=== PATIENT | female | born 1995 | race Two or more races ===

== ENCOUNTER 2018-03-28 16:56 | Inpatient (IN) | payer MEDICAID, OTHER ==
[~2018-03-28] VITALS: Ht 170.2 cm; Wt 123.8 kg
[2018-03-28 18:39] LABS: BASOPHILS % (AUTO) 1.2 % (0.0-2.0); EOSINOPHILS % (AUTO) 1.2 % (1.0-6.0); HEMATOCRIT 33.9 % (36-46); HEMOGLOBIN 10.9 g/dL (12.0-16.0); LYMPHOCYTES # (AUTO) 1.5 K/uL (1.0-4.8); LYMPHOCYTES % (AUTO) 12.4 % (22.0-44.0); MEAN CORPUSCULAR HEMOGLOBIN 24.2 pg (26.0-34.0); MEAN CORPUSCULAR HGB CONC 32.2 G/dL (31.0-37.0); MEAN CORPUSCULAR VOLUME 75 fL (80-100); MONOCYTES # (AUTO) 0.9 K/uL (0.1-1.0); NEUTROPHILS # (AUTO) 9.7 K/uL (1.8-7.7); NEUTROPHILS % (AUTO) 78.2 % (40.0-70.0); PLATELET COUNT (AUTO) 413 K/uL (150-450); RED BLOOD CELL COUNT(AUTO) 4.52 MIL/uL (4.00-5.20); RED CELL DISTRIBUTION WIDTH 16.3 % (11.5-14.5)
[2018-03-28] MEDS ORDERED: LORazepam 2 MG TABLET PO PRN (18:45)
[2018-03-28] MEDS ORDERED: IBUPROFEN 400 MG TABLET PO PRN (18:45)
[2018-03-28] MEDS ORDERED: HALOPERIDOL 5 MG TABLET PO PRN (18:45)
[2018-03-28] MEDS ORDERED: ACETAMINOPHEN 325 MG TABLET PO PRN (18:45)
[2018-03-28 18:47] LABS: ANION GAP 11 mmol/L (8-16); CALCIUM, TOTAL 8.5 mg/dL (8.8-10.5); CARBON DIOXIDE 25 mmol/L (22-29); CHLORIDE 104 mmol/L (98-107); GLOMERULAR FILTR. RATE CALC > 60 mL/min (>60); GLUCOSE,RANDOM 109 mg/dL (70-110); SODIUM SERUM 140 mmol/L (136-145); UREA NITROGEN, BLOOD 15 mg/dL (7-18)
[2018-03-28 18:53] LABS: ALANINE AMINOTRANSFERASE 14 U/L (12-78); ALBUMIN 3.2 g/dL (3.4-5.0); ALKALINE PHOSPHATASE 94 U/L (46-116); ASPARTATE AMINOTRANSFERASE 12 U/L (15-37); BILIRUBIN,TOTAL 0.2 mg/dL (0.1-1.0)
[2018-03-28 20:02] LABS: AMPHET/METH SCREEN,URINE POSITIVE (NEGATIVE); BARBITURATE SCREEN, URINE NEGATIVE (NEGATIVE); BENZODIAZEPINES SCREEN,URINE NEGATIVE (NEGATIVE); CANNABINOID SCREEN,URINE POSITIVE (NEGATIVE); COCAINE SCREEN,URINE NEGATIVE (NEGATIVE); METHADONE SCREEN, URINE NEGATIVE (NEGATIVE); OPIATE SCREEN,URINE NEGATIVE (NEGATIVE); PHENCYCLIDINE SCREEN,URINE NEGATIVE (NEGATIVE)
[2018-03-28 20:25] VITALS: BP 116/77
[2018-03-28 20:48] VITALS: BP 116/77
[2018-03-28] MEDS ORDERED: PERMETHRIN 1% 60 ML LOTION TP ONE (21:00)
[2018-03-28] MEDS: ZOLPIDEM TARTRATE 10 MG TABLET PO PRN (21:12)
[2018-03-29 06:03] VITALS: BP 110/68
[2018-03-29 08:39] LABS: BASOPHILS % (AUTO) 0.8 % (0.0-2.0); EOSINOPHILS % (AUTO) 2.4 % (1.0-6.0); HEMATOCRIT 34.9 % (36-46); HEMOGLOBIN 11.1 g/dL (12.0-16.0); LYMPHOCYTES % (AUTO) 24.2 % (22.0-44.0); MEAN CORPUSCULAR HEMOGLOBIN 24.3 pg (26.0-34.0); MEAN CORPUSCULAR HGB CONC 31.8 G/dL (31.0-37.0); MEAN CORPUSCULAR VOLUME 76 fL (80-100); MONOCYTES # (AUTO) 0.7 K/uL (0.1-1.0); MONOCYTES % (AUTO) 8.6 % (2.0-9.0); NEUTROPHILS # (AUTO) 5.3 K/uL (1.8-7.7); PLATELET COUNT (AUTO) 388 K/uL (150-450); RED BLOOD CELL COUNT(AUTO) 4.57 MIL/uL (4.00-5.20); RED CELL DISTRIBUTION WIDTH 16.7 % (11.5-14.5)
[2018-03-29 08:41] VITALS: BP 101/60
[2018-03-29 08:49] LABS: HEMOGLOBIN A1C 5.2 % (4.5-6.2)
[2018-03-29 09:16] LABS: ALANINE AMINOTRANSFERASE 18 U/L (12-78); ALKALINE PHOSPHATASE 85 U/L (46-116); ANION GAP 8 mmol/L (8-16); ASPARTATE AMINOTRANSFERASE 10 U/L (15-37); BILIRUBIN,TOTAL 0.2 mg/dL (0.1-1.0); CALCIUM, TOTAL 8.6 mg/dL (8.8-10.5); CARBON DIOXIDE 26 mmol/L (22-29); CHLORIDE 105 mmol/L (98-107); CREATININE 0.61 mg/dL (0.60-1.30); GLOMERULAR FILTR. RATE CALC > 60 mL/min (>60); GLUCOSE,RANDOM 88 mg/dL (70-110); POTASSIUM 3.8 mmol/L (3.5-5.1); SODIUM SERUM 139 mmol/L (136-145); TOTAL PROTEIN, SERUM 6.7 g/dL (6.4-8.2); UREA NITROGEN, BLOOD 16 mg/dL (7-18)
[2018-03-29 09:40] LABS: FREE T4 (FREE THYROXINE) 0.96 ng/dL (0.76-1.46); THYROID STIMULATING HORMONE 1.76 uIU/mL (0.36-3.74)
[2018-03-29 09:54] LABS: CHOL/HDL RATIO 2.9 (3.9-5.7)
[2018-03-29] MEDS ORDERED: ONDANSETRON HCL 4 MG TABLET PO PRN (13:30)
[2018-03-29] MEDS ORDERED: PETROLATUM,WHITE 71 GM JELLY TP PRN (13:30)
[2018-03-29] MEDS ORDERED: MAGNESIUM HYDROXIDE SUSPENSION 30 ML UDCUP PO PRN (13:30)
[2018-03-29] MEDS ORDERED: GuaiFENesin/D-METHORPHAN [SUGAR-FREE] 200-20MG/10 ML SYRUP UDCUP PO PRN (13:30)
[2018-03-29] MEDS ORDERED: CloNIDine HCL 0.1 MG TABLET PO PRN (13:30)
[2018-03-29] MEDS ORDERED: LOPERAMIDE HCL 2 MG CAPSULE PO PRN (13:30)
[2018-03-29] MEDS ORDERED: ACETAMINOPHEN 325 MG TABLET PO PRN (13:30)
[2018-03-29] MEDS ORDERED: MAG HYDROX/AL HYDROX/SIMETH ES 30 ML SUSPENSION UDCUP PO PRN (13:30)
[2018-03-29] MEDS ORDERED: NICOTINE 14 MG/24 HOUR PATCH TD PRN (13:30)
[2018-03-29] MEDS ORDERED: ALBUTEROL SULFATE HFA 90 MCG/PUFF 8 GM INHALER IH PRN (13:30)
[2018-03-29] MEDS ORDERED: IBUPROFEN 400 MG TABLET PO PRN (13:30)
[2018-03-29] MEDS ORDERED: DOCUSATE SODIUM 100 MG CAPSULE PO PRN (13:30)
[2018-03-29] MEDS ORDERED: PERMETHRIN 1% 60 ML LOTION TP ONE (14:30)
[2018-03-29] MEDS: FERROUS SULFATE 325 MG EC TABLET PO SCH (16:23)
[2018-03-29 16:33] VITALS: BP 111/60
[2018-03-30] MEDS: FERROUS SULFATE 325 MG EC TABLET PO SCH ×2 (06:12→16:44)
[2018-03-30] MEDS ORDERED: ZIPRASIDONE HCL 40 MG CAPSULE PO SCH (07:00)
[2018-03-30 08:31] VITALS: BP 103/61
[2018-03-30 16:31] VITALS: BP 122/81
[2018-03-30] MEDS: ZIPRASIDONE HCL 20 MG CAPSULE PO SCH (16:44)
[2018-03-30] MEDS: ZOLPIDEM TARTRATE 10 MG TABLET PO PRN (20:07)
[2018-03-31 06:09] VITALS: BP 124/87
[2018-03-31] MEDS: FERROUS SULFATE 325 MG EC TABLET PO SCH ×2 (07:11→16:29)
[2018-03-31] MEDS: ZIPRASIDONE HCL 20 MG CAPSULE PO SCH ×2 (07:11→16:29)
[2018-03-31 08:19] VITALS: BP 100/64
[2018-03-31 16:35] VITALS: BP 112/65
[2018-03-31] MEDS: ZOLPIDEM TARTRATE 10 MG TABLET PO PRN (20:09)
[2018-04-01 02:12] VITALS: BP 124/78
[2018-04-01] MEDS: FERROUS SULFATE 325 MG EC TABLET PO SCH (06:48)
[2018-04-01] MEDS: ZIPRASIDONE HCL 20 MG CAPSULE PO SCH (06:48)
[2018-04-01 08:12] VITALS: BP 118/68
[2018-04-01] MEDS ORDERED: ZIPR60CA2 PO (09:56)
[2018-04-01] MEDS ORDERED: FERR-89 PO (09:56)
[2018-04-01] MEDS ORDERED: ZIPR20CA2 PO (10:08)
== END 2018-04-01 13:15 | disposition home or self-care (01) | DRG 750 ==
LOC: EMS 16:58 → B2S 19:00
PROVIDERS: ADMIT Psychiatry & Neurology Psychiatry; ATTEND Psychiatry & Neurology Psychiatry
DX: F20.0 Paranoid schizophrenia (principal); D50.9 Iron deficiency anemia, unspecified; Z91.19 Patient's noncompliance with other medical treatment and regimen; D72.829 Elevated white blood cell count, unspecified; F10.10 Alcohol abuse, uncomplicated; F12.10 Cannabis abuse, uncomplicated; F15.10 Other stimulant abuse, uncomplicated; F17.210 Nicotine dependence, cigarettes, uncomplicated; Z71.6 Tobacco abuse counseling; Z71.41 Alcohol abuse counseling and surveillance of alcoholic; Z71.51 Drug abuse counseling and surveillance of drug abuser; Y90.9 Presence of alcohol in blood, level not specified
CPT/HCPCS: 83036; 84439; 84443; 99285; G0480

== ENCOUNTER 2021-10-04 13:16 | Emergency (ER) | payer MEDICAID, OTHER ==
[~2021-10-04] VITALS: Ht 170.2 cm; Wt 126.4 kg
[~2021-10-04 13:16] MED LIST: FERR325T27 PO; ZIPR20CA2 PO; ZIPR60CA2 PO
[2021-10-04] MEDS ORDERED: LIDOCAINE 1% 10 ML VIAL ID ONE (15:45)
[2021-10-04 16:10] VITALS: BP 119/81
[2021-10-04] MEDS ORDERED: ACET-66 PO (17:43)
== END 2021-10-04 18:17 | disposition home or self-care (01) ==
LOC: EMS 13:21
DX: S00.551A Superficial foreign body of lip, initial encounter (principal); F17.210 Nicotine dependence, cigarettes, uncomplicated; F12.90 Cannabis use, unspecified, uncomplicated; F41.9 Anxiety disorder, unspecified; W45.8XXA Other foreign body or object entering through skin, initial encounter; Y93.89 Activity, other specified; Y92.89 Other specified places as the place of occurrence of the external cause; Y99.8 Other external cause status
CPT/HCPCS: 10120; 99285; J3490

== ENCOUNTER 2021-10-06 14:11 | Emergency (ER) | payer OTHER ==
[~2021-10-06] VITALS: Ht 170.2 cm; Wt 122.7 kg
[~2021-10-06 14:11] MED LIST changes: +ACET-66 PO; -ZIPR20CA2 PO
[2021-10-06 15:07] VITALS: BP 120/59
== END 2021-10-06 15:33 | disposition home or self-care (01) ==
LOC: EMS 14:14
DX: Z48.00 Encounter for change or removal of nonsurgical wound dressing (principal); F12.90 Cannabis use, unspecified, uncomplicated; F15.90 Other stimulant use, unspecified, uncomplicated; F17.210 Nicotine dependence, cigarettes, uncomplicated; F41.9 Anxiety disorder, unspecified; Z79.899 Other long term (current) drug therapy
CPT/HCPCS: 99281; Z7502

== ENCOUNTER 2021-10-08 17:49 | Emergency (ER) | payer OTHER ==
[~2021-10-08] VITALS: Ht 170.2 cm; Wt 122.7 kg
[2021-10-08 18:20] VITALS: BP 116/64
== END 2021-10-08 18:49 | disposition home or self-care (01) ==
LOC: EMS 17:49
DX: S01.511D Laceration without foreign body of lip, subsequent encounter (principal); F41.9 Anxiety disorder, unspecified; F17.210 Nicotine dependence, cigarettes, uncomplicated; F15.90 Other stimulant use, unspecified, uncomplicated; F12.90 Cannabis use, unspecified, uncomplicated; Z98.890 Other specified postprocedural states; X58.XXXD Exposure to other specified factors, subsequent encounter
CPT/HCPCS: 99281; Z7502

== ENCOUNTER 2022-01-01 22:23 | Emergency (ER) | payer OTHER ==
[~2022-01-01] VITALS: Ht 170.2 cm; Wt 113.6 kg
[2022-01-01 22:26] VITALS: BP 128/76
== END 2022-01-01 23:30 | disposition home or self-care (01) ==
LOC: EMS 22:23
DX: M79.5 Residual foreign body in soft tissue (principal); F41.9 Anxiety disorder, unspecified; F17.210 Nicotine dependence, cigarettes, uncomplicated; F15.90 Other stimulant use, unspecified, uncomplicated; F12.90 Cannabis use, unspecified, uncomplicated; Z98.890 Other specified postprocedural states
CPT/HCPCS: 99284; Z7502

== ENCOUNTER 2023-01-20 21:06 | Inpatient (IN) | payer MEDICAID, OTHER ==
[~2023-01-20] VITALS: Ht 170.2 cm; Wt 132.9 kg
[~2023-01-20 21:06] MED LIST changes: -ZIPR60CA2 PO; +ZIPR60CA29 PO
[2023-01-20] MEDS ORDERED: HALOPERIDOL 5 MG TABLET PO ONE (23:15)
[2023-01-21] MEDS ORDERED: DiphenhydrAMINE HCL 50 MG/ML VIAL IM ONE (06:30)
[2023-01-21] MEDS ORDERED: HALOPERIDOL LACTATE 5 MG/ML VIAL IM ONE (06:30)
[2023-01-21] MEDS ORDERED: LORazepam 2 MG/ML VIAL IM ONE (06:30)
[2023-01-21 06:59] LABS: COVID AG,FIA SOURCE NASOPHARYNGEAL
[2023-01-21] MEDS: LORazepam 1 MG TABLET PO PRN (13:14)
[2023-01-21] MEDS: HALOPERIDOL 5 MG TABLET PO PRN (13:14)
[2023-01-22] MEDS ORDERED: ACETAMINOPHEN 325 MG TABLET PO ONE (06:00)
[2023-01-22] MEDS: HALOPERIDOL 5 MG TABLET PO PRN (13:52)
[2023-01-22] MEDS: LORazepam 1 MG TABLET PO PRN (13:52)
[2023-01-23 00:44] VITALS: BP 142/98; PULSE 89; RESP 18; TEMP 97.2; O2SAT 98
[2023-01-23 08:20] VITALS: BP 131/79; PULSE 95; RESP 16; TEMP 98; O2SAT 96
[2023-01-23] MEDS: LORazepam 1 MG TABLET PO PRN (09:52)
[2023-01-23] MEDS ORDERED: GuaiFENesin/D-METHORPHAN [SUGAR-FREE] 200-20MG/10 ML SYRUP UDCUP PO PRN (13:45)
[2023-01-23] MEDS ORDERED: NICOTINE 14 MG/24 HOUR PATCH TD PRN (13:45)
[2023-01-23] MEDS ORDERED: DOCUSATE SODIUM 100 MG CAPSULE PO PRN (13:45)
[2023-01-23] MEDS ORDERED: LOPERAMIDE HCL 2 MG CAPSULE PO PRN (13:45)
[2023-01-23] MEDS ORDERED: MAGNESIUM HYDROXIDE SUSPENSION 30 ML UDCUP PO PRN (13:45)
[2023-01-23] MEDS ORDERED: ALBUTEROL SULFATE HFA 90 MCG/PUFF 8 GM INHALER IH PRN (13:45)
[2023-01-23] MEDS ORDERED: CloNIDine HCL 0.1 MG TABLET PO PRN (13:45)
[2023-01-23] MEDS ORDERED: PETROLATUM,WHITE 28 GM JELLY TP PRN (13:45)
[2023-01-23] MEDS ORDERED: IBUPROFEN 400 MG TABLET PO PRN (13:45)
[2023-01-23] MEDS ORDERED: MAG HYDROX/AL HYDROX/SIMETH ES 30 ML SUSPENSION UDCUP PO PRN (13:45)
[2023-01-23] MEDS ORDERED: ACETAMINOPHEN 325 MG TABLET PO PRN (13:45)
[2023-01-23] MEDS ORDERED: ONDANSETRON HCL 4 MG TABLET PO PRN (13:45)
[2023-01-23] MEDS ORDERED: PRAZ1 PO (13:57)
[2023-01-23] MEDS ORDERED: LURA40TA4 PO (13:57)
[2023-01-23] MEDS ORDERED: FLUO20CA36 PO (13:57)
[2023-01-23] MEDS: FERROUS SULFATE 325 MG EC TABLET PO SCH (16:04)
[2023-01-23] MEDS: FLUoxetine HCL 20 MG CAPSULE PO SCH (16:04)
[2023-01-23] MEDS: PRAZOSIN HCL 1 MG CAPSULE PO SCH (20:02)
[2023-01-23] MEDS: ZOLPIDEM TARTRATE 10 MG TABLET PO PRN (20:02)
[2023-01-23 20:16] VITALS: BP 127/73; PULSE 83; RESP 20; TEMP 97.3; O2SAT 100
[2023-01-24] MEDS: LURASIDONE HCL 40 MG TABLET PO SCH (06:50)
[2023-01-24] MEDS: FERROUS SULFATE 325 MG EC TABLET PO SCH ×2 (06:50→16:30)
[2023-01-24] MEDS: FLUoxetine HCL 20 MG CAPSULE PO SCH (08:05)
[2023-01-24 08:48] VITALS: BP 137/71; PULSE 95; RESP 18; TEMP 98; O2SAT 98
[2023-01-24] MEDS: LORazepam 1 MG TABLET PO PRN (10:58)
[2023-01-24] MEDS: HALOPERIDOL 5 MG TABLET PO PRN (10:59)
[2023-01-24 20:06] VITALS: BP 145/77; PULSE 78; RESP 20; TEMP 97.7; O2SAT 98
[2023-01-24] MEDS: PRAZOSIN HCL 1 MG CAPSULE PO SCH (20:54)
[2023-01-24] MEDS: ZOLPIDEM TARTRATE 10 MG TABLET PO PRN (20:55)
[2023-01-25] MEDS: LURASIDONE HCL 40 MG TABLET PO SCH (06:56)
[2023-01-25] MEDS: FERROUS SULFATE 325 MG EC TABLET PO SCH ×2 (06:56→16:16)
[2023-01-25 07:15] VITALS: BP 107/64; PULSE 62; RESP 18; TEMP 98.2
[2023-01-25 08:00] VITALS: BP 139/76; PULSE 95; RESP 18; TEMP 97.4; O2SAT 96
[2023-01-25 08:13] VITALS: BP 119/76; PULSE 96; RESP 18; TEMP 98.3; O2SAT 97
[2023-01-25] MEDS: FLUoxetine HCL 20 MG CAPSULE PO SCH (08:52)
[2023-01-25 09:30] VITALS: BP 127/62; PULSE 79; RESP 18; TEMP 97.6; O2SAT 97
[2023-01-25 16:23] VITALS: BP 131/76; PULSE 89; RESP 18
[2023-01-25 20:11] VITALS: BP 100/74; PULSE 98; RESP 18; O2SAT 97
[2023-01-25] MEDS: ZOLPIDEM TARTRATE 10 MG TABLET PO PRN (20:45)
[2023-01-25] MEDS: PRAZOSIN HCL 1 MG CAPSULE PO SCH (20:45)
[2023-01-26] MEDS: FERROUS SULFATE 325 MG EC TABLET PO SCH ×2 (06:45→17:00)
[2023-01-26] MEDS: LURASIDONE HCL 40 MG TABLET PO SCH (06:45)
[2023-01-26] MEDS: FLUoxetine HCL 20 MG CAPSULE PO SCH (08:21)
[2023-01-26 09:10] VITALS: BP 117/75; PULSE 111; RESP 18; TEMP 97.8; O2SAT 99
[2023-01-26] MEDS: LORazepam 1 MG TABLET PO PRN (18:28)
[2023-01-26] MEDS ORDERED: LORazepam 2 MG TABLET PO PRN (19:00)
[2023-01-26] MEDS: ZOLPIDEM TARTRATE 10 MG TABLET PO PRN (20:29)
[2023-01-26] MEDS: PRAZOSIN HCL 1 MG CAPSULE PO SCH (20:29)
[2023-01-26 20:50] VITALS: BP 112/62; PULSE 81; RESP 18; TEMP 97.8; O2SAT 96
[2023-01-27] MEDS: FERROUS SULFATE 325 MG EC TABLET PO SCH ×2 (06:50→17:14)
[2023-01-27] MEDS: LURASIDONE HCL 40 MG TABLET PO SCH (06:50)
[2023-01-27 08:23] VITALS: BP 118/72; PULSE 97; RESP 18; TEMP 97.5; O2SAT 99
[2023-01-27] MEDS: FLUoxetine HCL 20 MG CAPSULE PO SCH (08:26)
[2023-01-27 08:31] LABS: APPEARANCE,URINE HAZY (CLEAR); BILIRUBIN,URINE NEGATIVE (NEGATIVE); GLUCOSE, URINE (UA) NEGATIVE (NEGATIVE); KETONES,URINE NEGATIVE (NEGATIVE); LEUKOCYTE ESTERASE ,URINE LARGE (NEGATIVE); NITRATE,URINE NEGATIVE (NEGATIVE); OCCULT BLOOD,URINE NEGATIVE (NEGATIVE); PROTEIN,URINE 30-70 mg/dL (NEGATIVE); SPECIFIC GRAVITIY, URINE 1.023 (1.003-1.030); UROBILINOGEN,URINE <=1.0 mg/dL (<=1.0)
[2023-01-27 08:32] LABS: AMPHET/METH SCREEN,URINE NEGATIVE (NEGATIVE); BARBITURATE SCREEN, URINE NEGATIVE (NEGATIVE); BENZODIAZEPINES SCREEN,URINE NEGATIVE (NEGATIVE); CANNABINOID SCREEN,URINE POSITIVE (NEGATIVE); COCAINE SCREEN,URINE NEGATIVE (NEGATIVE); METHADONE SCREEN, URINE NEGATIVE (NEGATIVE); OPIATE SCREEN,URINE NEGATIVE (NEGATIVE); PHENCYCLIDINE SCREEN,URINE NEGATIVE (NEGATIVE)
[2023-01-27 08:58] LABS: BACTERIA,URINE Few /HPF (None Seen); RBC,URINE 0-2 /HPF (0-2); SQUAMOUS EPITHELIAL CELL,UR Moderate /LPF (None Seen)
[2023-01-27] MEDS: LORazepam 1 MG TABLET PO PRN ×2 (12:23→19:37)
[2023-01-27] MEDS ORDERED: FLUO20CA36 PO (16:59)
[2023-01-27] MEDS: PRAZOSIN HCL 1 MG CAPSULE PO SCH (20:19)
[2023-01-27 20:44] VITALS: BP 132/72; PULSE 62; RESP 16; TEMP 97.8; O2SAT 95
[2023-01-27] MEDS: ZOLPIDEM TARTRATE 10 MG TABLET PO PRN (21:22)
[2023-01-28] MEDS: FERROUS SULFATE 325 MG EC TABLET PO SCH (06:53)
[2023-01-28] MEDS: LURASIDONE HCL 40 MG TABLET PO SCH (06:53)
[2023-01-28] MEDS: FLUoxetine HCL 20 MG CAPSULE PO SCH (08:19)
[2023-01-28] MEDS ORDERED: LURA40TA2 PO (10:36)
[2023-01-28] MEDS ORDERED: FLUO20CA36 PO (10:36)
[2023-01-28] MEDS ORDERED: PRAZ1 PO (10:36)
[2023-01-28] MEDS ORDERED: FERR325T27 PO (10:36)
== END 2023-01-28 12:28 | disposition home or self-care (01) | DRG 750 ==
LOC: EMS 21:07 → B3A 01-23 00:08 → B2S 01-25 07:16
PROVIDERS: ADMIT Psychiatry & Neurology Psychiatry; ATTEND Psychiatry & Neurology Psychiatry
DX: F25.0 Schizoaffective disorder, bipolar type (principal); F10.10 Alcohol abuse, uncomplicated; Z20.822 Contact with and (suspected) exposure to COVID-19; F15.90 Other stimulant use, unspecified, uncomplicated; F19.10 Other psychoactive substance abuse, uncomplicated; F41.9 Anxiety disorder, unspecified; R03.0 Elevated blood-pressure reading, without diagnosis of hypertension; F17.210 Nicotine dependence, cigarettes, uncomplicated; F43.12 Post-traumatic stress disorder, chronic; G47.00 Insomnia, unspecified; Z79.899 Other long term (current) drug therapy
CPT/HCPCS: 80307; 81001; 87086; 87186; 96372; 99285

== ENCOUNTER 2023-03-12 16:37 | Emergency (ER) | payer MEDICAID, OTHER ==
[~2023-03-12] VITALS: Ht 170.2 cm; Wt 136.4 kg
[~2023-03-12 16:37] MED LIST changes: -ACET-66 PO; +FLUO20CA36 PO; +LURA40TA2 PO; +LURA40TA4 PO; +PRAZ1 PO; -ZIPR60CA29 PO
[2023-03-12 16:42] VITALS: TEMP 98.6
[2023-03-12 18:18] VITALS: BP 117/60; PULSE 90
[2023-03-12] MEDS ORDERED: AMOX250C4 PO (21:59)
[2023-03-12] MEDS ORDERED: AMOXICILLIN TRIHYDRATE 250 MG CAPSULE PO ONE (22:00)
[2023-03-12] MEDS ORDERED: ACETAMINOPHEN 650 MG/20.3 ML SOLUTION UDCUP PO ONE (22:15)
[2023-03-12 22:25] VITALS: RESP 16
== END 2023-03-12 22:26 | disposition home or self-care (01) ==
LOC: EMS 16:40
DX: L03.012 Cellulitis of left finger (principal); F41.9 Anxiety disorder, unspecified; F31.9 Bipolar disorder, unspecified; F20.9 Schizophrenia, unspecified; F17.210 Nicotine dependence, cigarettes, uncomplicated; F15.90 Other stimulant use, unspecified, uncomplicated; F12.90 Cannabis use, unspecified, uncomplicated; Z98.890 Other specified postprocedural states
CPT/HCPCS: 26010; 99284; Z7502; Z7610

== ENCOUNTER 2023-06-03 01:00 | Inpatient (IN) | payer MEDICAID, OTHER ==
[~2023-06-03] VITALS: Ht 170.2 cm; Wt 127.0 kg
[~2023-06-03 01:00] MED LIST changes: +AMOX250C4 PO
[2023-06-03] MEDS ORDERED: DiphenhydrAMINE HCL 50 MG/ML VIAL IM ONE (01:45)
[2023-06-03] MEDS ORDERED: HALOPERIDOL LACTATE 5 MG/ML VIAL IM ONE (01:45)
[2023-06-03] MEDS ORDERED: LORazepam 2 MG/ML VIAL IM ONE (01:45)
[2023-06-03] MEDS ORDERED: ZOLPIDEM TARTRATE 10 MG TABLET PO PRN (03:00)
[2023-06-03 03:21] LABS: COVID AG,FIA SOURCE NASAL SWAB
[2023-06-03 03:41] LABS: SARS-COV2 (COVID) ANTIGEN,FIA Negative (Negative)
[2023-06-03 04:48] VITALS: RESP 18
[2023-06-03] MEDS ORDERED: DOCUSATE SODIUM 100 MG CAPSULE PO PRN (06:45)
[2023-06-03] MEDS ORDERED: CloNIDine HCL 0.1 MG TABLET PO PRN (06:45)
[2023-06-03] MEDS ORDERED: ACETAMINOPHEN 325 MG TABLET PO PRN (06:45)
[2023-06-03] MEDS ORDERED: LOPERAMIDE HCL 2 MG CAPSULE PO PRN (06:45)
[2023-06-03] MEDS ORDERED: GuaiFENesin/D-METHORPHAN [SUGAR-FREE] 200-20MG/10 ML SYRUP UDCUP PO PRN (06:45)
[2023-06-03] MEDS ORDERED: IBUPROFEN 400 MG TABLET PO PRN (06:45)
[2023-06-03] MEDS ORDERED: MAGNESIUM HYDROXIDE SUSPENSION 30 ML UDCUP PO PRN (06:45)
[2023-06-03] MEDS ORDERED: PETROLATUM,WHITE 28 GM JELLY TP PRN (06:45)
[2023-06-03] MEDS ORDERED: NICOTINE 14 MG/24 HOUR PATCH TD PRN (06:45)
[2023-06-03] MEDS ORDERED: ALBUTEROL SULFATE HFA 90 MCG/PUFF 8 GM INHALER IH PRN (06:45)
[2023-06-03] MEDS ORDERED: ONDANSETRON HCL 4 MG TABLET PO PRN (06:45)
[2023-06-03] MEDS ORDERED: MAG HYDROX/ALUMINUM HYD/SIMETH ES 30 ML SUSPENSION UDCUP PO PRN (06:45)
[2023-06-03] MEDS: FERROUS SULFATE 325 MG EC TABLET PO SCH ×2 (07:06→18:11)
[2023-06-03 08:13] VITALS: RESP 17
[2023-06-03] MEDS: FLUoxetine HCL 20 MG CAPSULE PO SCH (10:18)
[2023-06-03] MEDS: LURASIDONE HCL 40 MG TABLET PO SCH (10:18)
[2023-06-03] MEDS: HALOPERIDOL 5 MG TABLET PO PRN (16:18)
[2023-06-03 21:15] VITALS: RESP 17
[2023-06-04] MEDS: FERROUS SULFATE 325 MG EC TABLET PO SCH ×2 (06:44→16:56)
[2023-06-04] MEDS: LURASIDONE HCL 40 MG TABLET PO SCH (06:48)
[2023-06-04 08:09] VITALS: RESP 17
[2023-06-04] MEDS: FLUoxetine HCL 20 MG CAPSULE PO SCH (10:06)
[2023-06-05 06:21] LABS: BASOPHILS % (AUTO) 0.8 % (0.0-2.0); EOSINOPHILS % (AUTO) 1.8 % (1.0-6.0); HEMATOCRIT 33.6 % (36-46); HEMOGLOBIN 10.8 g/dL (12.0-16.0); LYMPHOCYTES # (AUTO) 2.5 K/uL (1.0-4.8); LYMPHOCYTES % (AUTO) 29.5 % (22.0-44.0); MEAN CORPUSCULAR HEMOGLOBIN 23.7 pg (26.0-34.0); MEAN CORPUSCULAR HGB CONC 32.2 G/dL (31.0-37.0); MEAN CORPUSCULAR VOLUME 74 fL (80-100); MONOCYTES # (AUTO) 0.6 K/uL (0.1-1.0); NEUTROPHILS # (AUTO) 5.2 K/uL (1.8-7.7); NEUTROPHILS % (AUTO) 60.9 % (40.0-70.0); PLATELET COUNT (AUTO) 422 K/uL (150-450); RED BLOOD CELL COUNT(AUTO) 4.56 MIL/uL (4.00-5.20); RED CELL DISTRIBUTION WIDTH 17.7 % (11.5-14.5); WHITE BLOOD COUNT (AUTO) 8.6 K/uL (4.5-11.0)
[2023-06-05 06:29] LABS: ANION GAP 4 mmol/L (8-16); CALCIUM, TOTAL 8.9 mg/dL (8.8-10.5); CARBON DIOXIDE 29 mmol/L (22-29); CHLORIDE 105 mmol/L (98-107); CREATININE 0.65 mg/dL (0.60-1.30); GLOMERULAR FILTR. RATE CALC > 60 mL/min (>60); GLUCOSE,RANDOM 91 mg/dL (70-110); POTASSIUM 4.1 mmol/L (3.5-5.1); SODIUM SERUM 138 mmol/L (136-145); UREA NITROGEN, BLOOD 10 mg/dL (7-18)
[2023-06-05 06:32] LABS: HEMOGLOBIN A1C 5.3 % (3.8-5.6)
[2023-06-05] MEDS: FERROUS SULFATE 325 MG EC TABLET PO SCH ×2 (06:33→18:01)
[2023-06-05] MEDS: LURASIDONE HCL 40 MG TABLET PO SCH (06:33)
[2023-06-05 06:44] LABS: ALANINE AMINOTRANSFERASE 13 U/L (12-78); ALBUMIN 3.1 g/dL (3.4-5.0); ALKALINE PHOSPHATASE 87 U/L (46-116); ASPARTATE AMINOTRANSFERASE 9 U/L (15-37); BILIRUBIN,TOTAL 0.1 mg/dL (0.1-1.0); HCG,QUANTITATIVE < 1 mIU/mL (0-6)
[2023-06-05 06:47] LABS: RBC MORPHOLOGY COMMENT ABNORMAL RBC MORPH
[2023-06-05 06:49] LABS: THYROID STIMULATING HORMONE 1.72 uIU/mL (0.36-3.74)
[2023-06-05 07:43] LABS: CHOL/HDL RATIO 3.6 (3.9-5.7); CHOLESTEROL 120 mg/dL (131-200); HDL CHOLESTEROL 33 mg/dL (40-60); LDL CHOL (CALC.) 72 mg/dL (0-130); TRIGLYCERIDES 74 mg/dL (15-150)
[2023-06-05 07:44] LABS: ALCOHOL, BLOOD (SERUM) < 3 mg/dL (0-10)
[2023-06-05] MEDS: FLUoxetine HCL 20 MG CAPSULE PO SCH (08:46)
[2023-06-05] MEDS: LORazepam 2 MG TABLET PO PRN ×2 (08:46→15:54)
[2023-06-05] MEDS: HALOPERIDOL 5 MG TABLET PO PRN ×2 (08:46→15:54)
[2023-06-05 08:50] VITALS: BP 119/81; PULSE 89; RESP 18
[2023-06-05 21:12] VITALS: RESP 18
[2023-06-06] MEDS: FERROUS SULFATE 325 MG EC TABLET PO SCH ×2 (06:36→16:46)
[2023-06-06] MEDS: LURASIDONE HCL 40 MG TABLET PO SCH (06:37)
[2023-06-06] MEDS: FLUoxetine HCL 20 MG CAPSULE PO SCH (09:40)
[2023-06-06 11:54] VITALS: BP 109/62; PULSE 89; RESP 20; TEMP 97
[2023-06-06 20:15] VITALS: RESP 18
[2023-06-07] MEDS: LURASIDONE HCL 40 MG TABLET PO SCH (06:50)
[2023-06-07] MEDS: FERROUS SULFATE 325 MG EC TABLET PO SCH (06:50)
[2023-06-07 08:00] VITALS: BP 110/60; PULSE 74; RESP 19; TEMP 97
[2023-06-07] MEDS: FLUoxetine HCL 20 MG CAPSULE PO SCH (09:30)
[2023-06-07] MEDS ORDERED: FLUO20CA36 PO (10:53)
[2023-06-07] MEDS ORDERED: PRAZ1 PO (10:53)
[2023-06-07] MEDS ORDERED: LURA40TA4 PO (10:53)
== END 2023-06-07 14:12 | disposition home or self-care (01) | DRG 750 ==
LOC: EMS 01:02 → 3EC 03:36
PROVIDERS: ADMIT Psychiatry & Neurology Child & Adolescent Psychiatry; ATTEND Psychiatry & Neurology Child & Adolescent Psychiatry
DX: F25.0 Schizoaffective disorder, bipolar type (principal); F17.210 Nicotine dependence, cigarettes, uncomplicated; Z20.822 Contact with and (suspected) exposure to COVID-19; F41.9 Anxiety disorder, unspecified; G47.00 Insomnia, unspecified; Z79.899 Other long term (current) drug therapy
CPT/HCPCS: 80053; 80061; 83036; 84443; 84702; 85025; 99291; G0480; J1200; J1630; J2060

== ENCOUNTER 2023-07-09 23:00 | Inpatient (IN) | payer MEDICAID, OTHER ==
[~2023-07-09] VITALS: Ht 170.2 cm; Wt 126.6 kg
[2023-07-10] MEDS ORDERED: HALOPERIDOL LACTATE 5 MG/ML VIAL IM ONE (02:30)
[2023-07-10] MEDS ORDERED: LORazepam 2 MG/ML VIAL IM ONE (02:30)
[2023-07-10] MEDS ORDERED: DiphenhydrAMINE HCL 50 MG/ML VIAL IM ONE (02:30)
[2023-07-10 08:21] LABS: COVID AG,FIA SOURCE NASAL SWAB
[2023-07-10 08:46] LABS: SARS-COV2 (COVID) ANTIGEN,FIA Negative (Negative)
[2023-07-10] MEDS ORDERED: INFLUENZA VIRUS VACCINE QVS 2023-24 (6MO+)/PF 60 MCG/0.5 ML SYRINGE IM. ONE (11:45)
[2023-07-10 13:09] VITALS: BP 122/78; PULSE 97; RESP 18; TEMP 96.3; O2SAT 99
[2023-07-10 20:40] VITALS: BP 100/60; PULSE 81; RESP 18; TEMP 97.6; O2SAT 100
[2023-07-11] MEDS ORDERED: ALBUTEROL SULFATE HFA 90 MCG/PUFF 8 GM INHALER IH PRN (06:30)
[2023-07-11] MEDS ORDERED: CloNIDine HCL 0.1 MG TABLET PO PRN (06:30)
[2023-07-11] MEDS ORDERED: IBUPROFEN 400 MG TABLET PO PRN (06:30)
[2023-07-11] MEDS ORDERED: NICOTINE 14 MG/24 HOUR PATCH TD PRN (06:30)
[2023-07-11] MEDS ORDERED: GuaiFENesin/D-METHORPHAN [SUGAR-FREE] 200-20MG/10 ML SYRUP UDCUP PO PRN (06:30)
[2023-07-11] MEDS ORDERED: MAGNESIUM HYDROXIDE SUSPENSION 30 ML UDCUP PO PRN (06:30)
[2023-07-11] MEDS ORDERED: DOCUSATE SODIUM 100 MG CAPSULE PO PRN (06:30)
[2023-07-11] MEDS ORDERED: PETROLATUM,WHITE 28 GM JELLY TP PRN (06:30)
[2023-07-11] MEDS ORDERED: ONDANSETRON HCL 4 MG TABLET PO PRN (06:30)
[2023-07-11] MEDS ORDERED: MAG HYDROX/ALUMINUM HYD/SIMETH ES 30 ML SUSPENSION UDCUP PO PRN (06:30)
[2023-07-11] MEDS ORDERED: LOPERAMIDE HCL 2 MG CAPSULE PO PRN (06:30)
[2023-07-11] MEDS: FERROUS SULFATE 325 MG EC TABLET PO SCH ×2 (06:36→17:11)
[2023-07-11 08:27] VITALS: RESP 18
[2023-07-11] MEDS: ACETAMINOPHEN 325 MG TABLET PO PRN (08:27)
[2023-07-11] MEDS: LORazepam 2 MG TABLET PO PRN (08:27)
[2023-07-11 08:56] VITALS: BP 132/71; PULSE 90; RESP 18; TEMP 97.9; O2SAT 98
[2023-07-11 09:27] VITALS: RESP 18
[2023-07-11] MEDS: FLUoxetine HCL 20 MG CAPSULE PO SCH (11:06)
[2023-07-11 20:09] VITALS: BP 116/75; PULSE 74; RESP 18; TEMP 97.6; O2SAT 98
[2023-07-12] MEDS: FERROUS SULFATE 325 MG EC TABLET PO SCH ×2 (06:10→16:21)
[2023-07-12] MEDS: LURASIDONE HCL 40 MG TABLET PO SCH (06:10)
[2023-07-12] MEDS: FLUoxetine HCL 20 MG CAPSULE PO SCH (08:09)
[2023-07-12 08:29] VITALS: BP_SYST 106; BP_SYST 119; BP_DIAS 62; BP_DIAS 69; PULSE 77; PULSE 80; RESP 17; RESP 18; TEMP 97.7; TEMP 97.9; O2SAT 98
[2023-07-12] MEDS: HALOPERIDOL 5 MG TABLET PO PRN (18:51)
[2023-07-12] MEDS: LORazepam 2 MG TABLET PO PRN (18:51)
[2023-07-12] MEDS: ZOLPIDEM TARTRATE 10 MG TABLET PO PRN (19:58)
[2023-07-12 20:28] VITALS: BP 112/62; PULSE 76; RESP 16; TEMP 97.8; O2SAT 98
[2023-07-13] MEDS: LURASIDONE HCL 40 MG TABLET PO SCH (06:46)
[2023-07-13] MEDS: FERROUS SULFATE 325 MG EC TABLET PO SCH ×2 (06:46→16:57)
[2023-07-13 08:19] VITALS: BP 113/71; PULSE 85; RESP 17; TEMP 97.9; O2SAT 97
[2023-07-13] MEDS: FLUoxetine HCL 20 MG CAPSULE PO SCH (08:48)
[2023-07-13 20:11] VITALS: BP 119/63; PULSE 77; RESP 17; TEMP 97.9; O2SAT 97
[2023-07-14] MEDS: FERROUS SULFATE 325 MG EC TABLET PO SCH ×2 (06:44→17:06)
[2023-07-14] MEDS: LURASIDONE HCL 40 MG TABLET PO SCH (06:44)
[2023-07-14 08:34] VITALS: BP 140/91; PULSE 89; RESP 18; TEMP 98.7; O2SAT 100
[2023-07-14] MEDS: FLUoxetine HCL 20 MG CAPSULE PO SCH (10:07)
[2023-07-14] MEDS: HALOPERIDOL 5 MG TABLET PO PRN (10:16)
[2023-07-14] MEDS: LORazepam 2 MG TABLET PO PRN (10:16)
[2023-07-14 20:42] VITALS: BP 131/63; PULSE 69; RESP 19; TEMP 97.9; O2SAT 99
[2023-07-15] MEDS: LURASIDONE HCL 40 MG TABLET PO SCH (06:34)
[2023-07-15] MEDS: FERROUS SULFATE 325 MG EC TABLET PO SCH ×2 (06:34→16:56)
[2023-07-15 08:13] VITALS: BP 148/89; PULSE 81; RESP 17; TEMP 97.6; O2SAT 97
[2023-07-15 08:14] LABS: BASOPHILS % (AUTO) 1.8 % (0.0-2.0); EOSINOPHILS % (AUTO) 1.3 % (1.0-6.0); HEMATOCRIT 34.8 % (36-46); LYMPHOCYTES # (AUTO) 1.7 K/uL (1.0-4.8); LYMPHOCYTES % (AUTO) 19.3 % (22.0-44.0); MEAN CORPUSCULAR HEMOGLOBIN 23.3 pg (26.0-34.0); MEAN CORPUSCULAR HGB CONC 31.6 G/dL (31.0-37.0); MEAN CORPUSCULAR VOLUME 74 fL (80-100); MONOCYTES # (AUTO) 0.5 K/uL (0.1-1.0); MONOCYTES % (AUTO) 5.7 % (2.0-9.0); NEUTROPHILS # (AUTO) 6.5 K/uL (1.8-7.7); NEUTROPHILS % (AUTO) 71.9 % (40.0-70.0); PLATELET COUNT (AUTO) 565 K/uL (150-450); RED BLOOD CELL COUNT(AUTO) 4.71 MIL/uL (4.00-5.20); RED CELL DISTRIBUTION WIDTH 17.7 % (11.5-14.5)
[2023-07-15] MEDS: FLUoxetine HCL 20 MG CAPSULE PO SCH (08:21)
[2023-07-15 08:34] LABS: HEMOGLOBIN A1C 5.3 % (3.8-5.6)
[2023-07-15 08:47] LABS: ANION GAP 10 mmol/L (8-16); CALCIUM, TOTAL 8.8 mg/dL (8.8-10.5); CARBON DIOXIDE 26 mmol/L (22-29); CHLORIDE 104 mmol/L (98-107); CHOL/HDL RATIO 3.4 (3.9-5.7); CHOLESTEROL 148 mg/dL (131-200); CREATININE 0.59 mg/dL (0.60-1.30); GLOMERULAR FILTR. RATE CALC > 60 mL/min (>60); GLUCOSE,RANDOM 87 mg/dL (70-110); HDL CHOLESTEROL 43 mg/dL (40-60); LDL CHOL (CALC.) 89 mg/dL (0-130); POTASSIUM 4.1 mmol/L (3.5-5.1); SODIUM SERUM 140 mmol/L (136-145); THYROID STIMULATING HORMONE 0.92 uIU/mL (0.36-3.74); TRIGLYCERIDES 78 mg/dL (15-150); UREA NITROGEN, BLOOD 7 mg/dL (7-18)
[2023-07-15 15:19] VITALS: RESP 17
[2023-07-15] MEDS: ACETAMINOPHEN 325 MG TABLET PO PRN (15:19)
[2023-07-15 16:19] VITALS: RESP 16
[2023-07-15 20:10] VITALS: BP 139/84; PULSE 78; RESP 18; TEMP 97.4; O2SAT 99
[2023-07-15] MEDS: ZOLPIDEM TARTRATE 10 MG TABLET PO PRN (21:01)
[2023-07-16] MEDS: FERROUS SULFATE 325 MG EC TABLET PO SCH ×2 (05:56→16:27)
[2023-07-16] MEDS: LURASIDONE HCL 40 MG TABLET PO SCH (05:56)
[2023-07-16] MEDS: ACETAMINOPHEN 325 MG TABLET PO PRN ×2 (06:24→20:26)
[2023-07-16] MEDS: FLUoxetine HCL 20 MG CAPSULE PO SCH (08:04)
[2023-07-16 08:12] VITALS: BP 119/63; PULSE 84; RESP 18; TEMP 98.4; O2SAT 98
[2023-07-16 20:14] VITALS: BP 103/59; PULSE 92; RESP 17; TEMP 97.2; O2SAT 99
[2023-07-16] MEDS: LORazepam 2 MG TABLET PO PRN (20:27)
[2023-07-16] MEDS: ZOLPIDEM TARTRATE 10 MG TABLET PO PRN (20:27)
[2023-07-17] MEDS: FERROUS SULFATE 325 MG EC TABLET PO SCH ×2 (06:21→16:27)
[2023-07-17] MEDS: LURASIDONE HCL 40 MG TABLET PO SCH (06:21)
[2023-07-17] MEDS: FLUoxetine HCL 20 MG CAPSULE PO SCH (08:13)
[2023-07-17 09:03] VITALS: BP 112/68; PULSE 92; RESP 18; TEMP 97.8; O2SAT 98
[2023-07-17] MEDS: LORazepam 2 MG TABLET PO PRN (12:31)
[2023-07-17] MEDS: HALOPERIDOL 5 MG TABLET PO PRN (12:31)
[2023-07-17 20:50] VITALS: BP 128/68; PULSE 79; RESP 18; TEMP 97.6; O2SAT 96
[2023-07-18] MEDS: ZOLPIDEM TARTRATE 10 MG TABLET PO PRN (00:08)
[2023-07-18] MEDS: LURASIDONE HCL 40 MG TABLET PO SCH (06:03)
[2023-07-18] MEDS: FERROUS SULFATE 325 MG EC TABLET PO SCH (06:03)
[2023-07-18 08:35] VITALS: BP 134/75; PULSE 88; RESP 17; TEMP 97.4; O2SAT 97
[2023-07-18] MEDS: FLUoxetine HCL 20 MG CAPSULE PO SCH (09:01)
== END 2023-07-18 14:39 | disposition left against medical advice (07) | DRG 750 ==
LOC: EMS 23:03 → B2S 07-10 07:34
PROVIDERS: ADMIT Psychiatry & Neurology Child & Adolescent Psychiatry; ATTEND Psychiatry & Neurology Child & Adolescent Psychiatry
PROC: GZHZZZZ Group Psychotherapy (ICD-10-PCS; principal; 2023-07-11)
PROC: GZ56ZZZ Individual Psychotherapy, Supportive (ICD-10-PCS; 2023-07-11)
DX: F20.0 Paranoid schizophrenia (principal); G93.40 Encephalopathy, unspecified; R45.851 Suicidal ideations; F31.9 Bipolar disorder, unspecified; E66.9 Obesity, unspecified; F41.9 Anxiety disorder, unspecified; Z20.822 Contact with and (suspected) exposure to COVID-19; R03.0 Elevated blood-pressure reading, without diagnosis of hypertension; Z53.29 Procedure and treatment not carried out because of patient's decision for other reasons; F15.90 Other stimulant use, unspecified, uncomplicated; D64.9 Anemia, unspecified; Z72.89 Other problems related to lifestyle; Z87.891 Personal history of nicotine dependence; Z59.00 Homelessness unspecified; Z68.41 Body mass index [BMI] 40.0-44.9, adult; Z28.21 Immunization not carried out because of patient refusal
CPT/HCPCS: 80048; 80061; 83036; 84443; 85025; 96372; 99285; J1200; J1630; J2060

== ENCOUNTER 2023-11-09 18:24 | Emergency (ER) | payer MEDICAID, OTHER ==
[~2023-11-09] VITALS: Ht 167.6 cm; Wt 200.0 kg
[2023-11-09 19:53] VITALS: BP 145/68; PULSE 94; RESP 18; TEMP 98.3
== END 2023-11-09 21:24 | disposition home or self-care (01) ==
LOC: EMS 18:25
DX: T50.995A Adverse effect of other drugs, medicaments and biological substances, initial encounter (principal); F41.9 Anxiety disorder, unspecified; F31.9 Bipolar disorder, unspecified; F20.9 Schizophrenia, unspecified; F17.210 Nicotine dependence, cigarettes, uncomplicated; F12.90 Cannabis use, unspecified, uncomplicated; F15.90 Other stimulant use, unspecified, uncomplicated; Z98.890 Other specified postprocedural states
CPT/HCPCS: 99283; Z7502